=== PATIENT | female | born 1970 | race Caucasian/White ===

== ENCOUNTER → 2022-12-13 | Outpatient (CLI) | payer OTHER ==
--- NOTE | 2022-12-18 22:54 | HM ---
HOLTER MONITOR REPORT STUDY PERFORMED: A 24-hour Holter. INDICATION: Bradycardia. Underlying rhythm is sinus with an average heart rate of 81 beats per minute. Heart rate varied from 64 beats per minute to 114 beats per minute. There were no episodes of more than 2-second pauses. There were no episodes of atrial fibrillation. Occasional PACs and PVCs are noted. CONCLUSIONS: As above. MMODL / IJN: [id number] /
== END | disposition home or self-care (01) ==
LOC: RADECHMAIN 08:26
PROVIDERS: ATTEND Family Medicine
DX: R00.1 Bradycardia, unspecified (principal)
CPT/HCPCS: 93225; 93226

== ENCOUNTER → 2023-08-02 | Outpatient (CLI) | payer OTHER ==
[2023-08-03 02:27] LABS: BUN/Creat Ratio 18.88 Ratio (12.00-20.00); Blood Urea Nitrogen 15.1 mg/dL (9.0-27.0); Carbon Dioxide 26.6 mmol/L (21.6-31.8); Chloride 104 mmol/L (96-109); Glucose 88 mg/dL (70-110); Potassium 3.5 mmol/L (3.5-5.5); Sodium 141 mmol/L (135-145)
[2023-08-03 02:58] LABS: Basophils # (A) 0.05 X 10*3/uL (0.00-0.10); Basophils % (A) 0.5 %; Eosinophils # (A) 0.31 X 10*3/uL (0.04-0.35); HCT 40.5 % (37.2-46.3); HGB 13.6 g/dL (12.0-15.0); Lymphocytes # (A) 4.07 X 10*3/uL (0.90-5.00); Lymphocytes % (A) 39.4 %; MCH 32.4 pg (27.0-32.0); MCHC 33.6 g/dL (32.0-37.0); MCV 96.4 FL (80.0-97.0); Mean Platelet Volume 11.2 FL (9.5-12.2); Monocytes # (A) 0.87 X 10*3/uL (0.20-1.00); Monocytes % (A) 8.4 %; NRBC Per 100 WBC 0 X 10*3/uL (0.00-0.01); Neutrophils % (A) 48.3 %; Platelet Count 290 X 10*3/uL (140-440); RDW 12.2 % (11.5-14.5); WBC 10.34 X 10*3/uL (4.50-10.00)
== END | disposition home or self-care (01) ==
LOC: LABPAT 16:21
PROVIDERS: ATTEND Urology
DX: Z01.812 Encounter for preprocedural laboratory examination (principal); N20.0 Calculus of kidney
CPT/HCPCS: 80048; 85025

== ENCOUNTER 2023-08-09 05:36 | Day surgery (SDC) | payer OTHER ==
--- NOTE | 2023-08-02 18:34 | P.GSHP ---
History of Present Illness H&P Date: 08/02/23 Chief Complaint: Flank pain The patient is a 53-year-old white female with a history of kidney stones, for which she has undergone ESWL and ureteroscopy in the past. She now presents with intermittent bilateral flank pain. CT scan shows bilateral renal calculi measuring up to 9 mm in size. Specifically, she has a 9 mm left mid to upper pole renal calculus and a 7 mm left lower pole calculus; also a 1 cm right mid pole calculus and a 7 mm right lower pole calculus. She was offered the options of observation, ESWL, and ureteroscopy with laser lithotripsy. She has chosen to undergo the latter. She understands that this will be a staged procedure given the stone burden. - Gastrointestinal Gastrointestinal: Reports heartburn, Denies nausea, Denies vomiting - Genitourinary (Female) Genitourinary: Reports flank pain, Reports kidney stones, Reports mixed incontinence, Denies hematuria Past Medical History Past Medical History: COPD, Myocardial Infarction ([place]) Past Surgical History: Heart Catheterization With Stent, Hernia Repair Smoking Status: Current every day smoker, Heavy tobacco smoker Past Alcohol Use History: None Reported Past Drug Use History: Marijuana Medications and Allergies Home Medications Medication Instructions Recorded Confirmed Type Albuterol Inhaler [Ventolin Hfa 2 puff INHALATION RT-QID PRN 06/15/23 06/15/23 History Inhaler] Aspirin 81 mg PO DAILY 06/15/23 06/15/23 History Cephalexin [Keflex] 500 mg PO Q6HR 1 Days #12 cap 06/15/23 Rx Cholecalciferol [Vitamin D3 (25 50 mcg PO DAILY 06/15/23 06/15/23 History Mcg = 1000 Iu)] HYDROcodone/APAP 5-325MG [[place] 1 tab PO Q6HR PRN 3 Days #12 tab 06/15/23 Rx 5-325] Multivitamins, Thera [Multivitamin 1 tab PO DAILY 06/15/23 06/15/23 History (formulary)] Omeprazole 20 mg PO DAILY 06/15/23 06/15/23 History carvediloL [Coreg] 3.125 mg PO BID 06/15/23 06/15/23 History Allergies Allergy/AdvReac Type Severity Reaction Status Date / Time No Known Allergies Allergy Verified 06/15/23 22:53 Surgical - Exam - General well developed, well nourished, no distress - Neck no masses, trachea midline - Respiratory normal respiratory effort - Abdomen Abdomen: soft, non tender, no guarding, no rigid, no rebound - Psychiatric oriented to time, oriented to person, oriented to place, speech is normal, memory intact Results - Imaging CT scan - abdomen: report reviewed Assessment and Plan (1) Calculus of kidney Status: Acute Code(s): N20.0 - CALCULUS OF KIDNEY SNOMED Code(s): 02105129 Plan: Cystoscopy, bilateral retrograde pyelograms, bilateral ureteroscopy with Holmium laser lithotripsy and stone basketing, bilateral ureteral stent insertion. The procedure then reviewed in detail with the patient. She has been made aware of potential risks, which include anesthesia, bleeding, infection, ureteral injury, and inability to remove all calculi.
[2023-08-09] MEDS ORDERED: HYDROmorphone 0.5 MG/0.5 ML SYRINGE IVP PRN (06:14)
[2023-08-09] MEDS ORDERED: ONDANSETRON 4 MG/2 ML VIAL IVP ONE (06:14)
[2023-08-09] MEDS ORDERED: DEXAMETHASONE SOD PHOSPHATE 4 MG/ML 1 ML VIAL IV ONE (06:14)
[2023-08-09] MEDS: LACTATED RINGERS 1,000 ML IV SCH ×2 (06:35→13:07)
[2023-08-09] MEDS ORDERED: MIDAZOLAM 2 MG/2 ML VIAL ONE (07:03)
[2023-08-09] MEDS ORDERED: fentaNYL (PF) 50 MCG/ML 2 ML AMP ONE (07:03)
[2023-08-09] MEDS ORDERED: NEOSTIGMINE 1 MG/ML 10 ML VIAL ONE (07:03)
[2023-08-09] MEDS ORDERED: ROCURONIUM 10 MG/ML (5 ML VIAL) IV ONE (07:03)
[2023-08-09] MEDS ORDERED: GLYCOPYRROLATE 0.2 MG/ML 2 ML VIAL ONE (07:03)
[2023-08-09] MEDS ORDERED: HYDROmorphone (PF) 1 MG/ML ONE (07:03)
[2023-08-09] MEDS ORDERED: PROPOFOL 10 MG/ML 20 ML VIAL IV ONE (07:03)
[2023-08-09] MEDS ORDERED: SUCCINYLCHOLINE CHLORIDE 200 MG/10 ML VIAL IV ONE (07:03)
[2023-08-09] MEDS ORDERED: LIDOCAINE 1% INJ 10MG/ML (20 ML MDV) ONE (07:03)
[2023-08-09] MEDS ORDERED: IOPAMIDOL-370 100ML BTL MISCELLANE ONE (07:33)
--- NOTE | 2023-08-09 07:57 | XR ---
EXAMINATION TYPE: XR KUB DATE OF EXAM: 08/09/2023 HISTORY: Pain Comparison: None. Single KUB is submitted for interpretation. Findings: Right renal calculi: 2 right-sided renal calculi seen the largest measures 1.4 cm mid upper lobe. Right ureteral calculi: None Visualized. Left renal calculi: Left renal calculi approximately 2 in number the largest mid to upper pole measu ring 1.2 cm. Left ureteral calculi: Left ureteral calculus at the S2-3 level cannot be excluded measuring 8.1 mm. Correlate clinically. Pelvic calcifications: None Visualized. Bowel gas pattern is unremarkable. No free air. No mass effects. IMPRESSION: 1. As above
[2023-08-09 09:50] VITALS: TEMP 97.8
--- NOTE | 2023-08-09 09:58 | P.OP ---
Date of Procedure: 08/09/23 Preoperative Diagnosis: Bilateral renal calculi Postoperative Diagnosis: Same Procedure(s) Performed: Cystoscopy, bilateral retrograde pyelogram, bilateral ureteroscopy with Holmium laser lithotripsy and stone basketing, bilateral ureteral stent insertion Anesthesia: JOCELYN Surgeon: Jesse Trevino Estimated Blood Loss (ml): 10 IV fluids (ml): 700 Pathology: other (Calculus fragments, sent for chemical analysis) Condition: stable Disposition: PACU Indications for Procedure: The patient is a 53-year-old white female with a history of kidney stones, for which she has undergone ESWL and ureteroscopy in the past. She now presents with intermittent bilateral flank pain. CT scan shows bilateral renal calculi measuring up to 9 mm in size. Specifically, she has a 9 mm left mid to upper pole renal calculus and a 7 mm left lower pole calculus; also a 1 cm right mid pole calculus and a 7 mm right lower pole calculus. She was offered the options of observation, ESWL, and ureteroscopy with laser lithotripsy. She has chosen to undergo the latter. She understands that this will be a staged procedure given the stone burden. Operative Findings: Bilateral renal calculi, removed completely Description of Procedure: The patient was taken to the operating room and placed in the dorsolithotomy position, with legs supported in John stirrups. The external genitalia was prepped and draped sterilely. The 30 lens was used to introduce the 21-Mozambican Jones cystoscopic sheath through the urethra and into the bladder under direct vision. The bladder was examined in its entirety. Both ureteral orifices were normal anatomic location and configuration, and clear urine effluxed from both. No tumors or foreign bodies were seen. Using a 10-[place]ozambican cone-tipped catheter, bilateral retrograde pyelograms were performed. The ureters were normal in course and caliber. No filling defects were seen. There was no hydronephrosis. A 0.038 inch Glidewire was passed through the cystoscope. The left ureteral orifice was cannulated, and the Glidewire was advanced up to the renal pelvis. The cystoscope was removed, and an 11/13-Mozambican ureteral access catheter was passed over the wire, up to the proximal ureter. The Jones [employer]ers flexible ureteroscope was then passed through the ureteral access catheter sheath, up to the renal pelvis. Each calyx was examined. Calculi were identified within a mid pole calyx and a lower pole calyx. The 272 micron Holmium laser probe was passed through the ureteroscope, and lithotripsy was performed, initially treating the mid pole calyx. A dusting mode was utilized, until the calculus began to fragment, and all calculus fragments were removed using a 1.9-Mozambican 0 tip nitinol basket. Attention was then paid to the lower pole calculus, which was grasped with the basket and relocated into the renal pelvis, where lithotripsy was performed. Once again, dusting was performed, and any fragments were removed using the nitinol basket. Once there was nothing remaining in the kidney other than dust, the procedure was terminated. Pullout ureteroscopy showed no evidence of ureteral trauma. An identical procedure was performed on the right side. Once again, calculi were located within a mid pole calyx and a lower pole calyx. 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 The lower pole calculus was relocated into the renal pelvis where lithotripsy was performed. Upon completion of the procedure, only dust remained. Pullout ureteroscopy showed no evidence of ureteral trauma. The cystoscope was replaced into the bladder. A 22 cm, 6-Mozambican double-J ureteral stents were placed bilaterally in the standard fashion. Proper stent positioning was verified fluoroscopically and endoscopically. The bladder was emptied and the cystoscope removed. The patient tolerated the procedure well and was taken to the recovery room in stable condition. [employer] Report: Procedure Acuity: Elective Stone Size and Location: See indications for procedure Ureteral Dilation: No Ureteral Access Sheath Used: Yes Stone Sent for Analysis: Yes All Stones/Fragments Were Removed with a Basket: Yes Complications: No Preoperative Antibiotics Given: Yes Stent Placed: Yes If Stent Placed, Was String Left Attached: No If Stent Placed, When is it to be Removed: 1 week Discharge Medications: Toradol, oxybutynin chloride
--- NOTE | 2023-08-09 10:02 | FL ---
Fluoroscopy History: CYSTO Bilateral cysto with bilateral stent insertion. Betrus. 42 sec fluoro. 3.0350 DAP. LC
[2023-08-09] MEDS ORDERED: KETOROLAC 15 MG/ML 1 ML VIAL IVP ONE (10:48)
[2023-08-09 13:51] VITALS: BP 130/81; PULSE 52; RESP 14
== END 2023-08-09 14:36 | disposition home or self-care (01) ==
LOC: OR 05:36
PROVIDERS: ATTEND Urology
DX: N20.0 Calculus of kidney (principal); I25.2 Old myocardial infarction; J44.9 Chronic obstructive pulmonary disease, unspecified; F17.200 Nicotine dependence, unspecified, uncomplicated; F12.90 Cannabis use, unspecified, uncomplicated; Z87.442 Personal history of urinary calculi; Z79.82 Long term (current) use of aspirin; Z79.899 Other long term (current) drug therapy
CPT/HCPCS: 52356; 82365; 74018; C1758; C2625; C1769; J2250; J0330; J1100; J2710; J0690; J2405; J2001; J3010; J1170 ×2; J1885; J2704; Q9967

== ENCOUNTER 2023-11-03 18:29 | Emergency (ER) | payer OTHER ==
--- NOTE | 2023-11-03 18:51 | ED ---
General Adult HPI - General Source: patient, RN notes reviewed Mode of arrival: ambulatory Limitations: no limitations <Mali Denson - Last Filed: 11/03/23 18:50> - General Source: patient, RN notes reviewed, old records reviewed <Arturo Brady - Last Filed: 11/04/23 00:24> - General Chief complaint: Abdominal Pain Stated complaint: flank pain Time Seen by Provider: 11/03/23 18:50 - History of Present Illness Initial comments: Note: Patient is a 53-year-old female presented to the ER with chief complaint of right flank pain. She does have a history of kidney surgery with stent placement most recently in August 2023. She does have a history of UTIs. Denies any current urinary symptoms. She also reports the past couple days she has been experiencing left chest pressure. Denies any shortness of breath. (Mali Denson) Patient is a 53-year-old female who was originally seen as a quick note. Presents emergency department complaining of right flank pain. Has a history of prior ureteral stenting for kidney stones. Was concerned that may be going on. Also was complaining of nonspecific left chest tightness/pressure. Attributes it to stress but she does have a prior cardiac history. Last time she ex perienced the symptoms was earlier today. Currently is asymptomatic in terms of the chest discomfort but has mild flank discomfort. Presented for further evaluation at this time. (Arturo Brady) - Related Data Home Medications Medication Instructions Recorded Confirmed Albuterol Inhaler [Ventolin Hfa 2 puff INHALATION RT-QID PRN 06/15/23 08/06/23 Inhaler] Aspirin 81 mg PO DAILY 06/15/23 08/06/23 Cholecalciferol [Vitamin D3 (25 50 mcg PO DAILY 06/15/23 08/06/23 Mcg = 1000 Iu)] Multivitamins, Thera [Multivitamin 1 tab PO DAILY 06/15/23 08/06/23 (formulary)] Omeprazole 20 mg PO DAILY 06/15/23 08/06/23 carvediloL [Coreg] 3.125 mg PO BID 06/15/23 08/06/23 Atorvastatin [Lipitor] 80 mg PO DAILY 08/06/23 08/06/23 Ibuprofen 800 mg PO Q6H 08/06/23 08/06/23 Isosorbide Mononitrate ER [Imdur] 30 mg PO DAILY 08/06/23 08/06/23 Oxybutynin ER [Ditropan XL] 10 mg PO DAILY 08/06/23 08/06/23 Previous Rx's Medication Instructions Recorded Ketorolac [Toradol] 10 mg PO Q6HR PRN #10 tab 08/09/23 Allergies Allergy/AdvReac Type Severity Reaction Status Date / Time No Known Allergies Allergy Verified 08/09/23 06:08 Review of Systems ROS Other: All systems not noted in ROS Statement are negative. <Mali Denson - Last Filed: 11/03/23 18:50> ROS Other: All systems not noted in ROS Statement are negative. <Arturo Brady - Last Filed: 11/04/23 00:24> ROS Statement: Those systems with pertinent positive or pertinent negative responses have been documented in the HPI. Review of Systems: CONST: Denies fever EYES: Denies blurry vision ENT: Denies nasal congestion C/V: Denies Chest pain RESP: Denies shortness of breath GI: Endorses abdominal pain/flank pain : Denies dysuria SKIN: Denies rash. MSK: Denies joint pain. 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, kidney stones, porlapsed baldder, Last Myocardial Infarction Date:: 12/2021 History of Any Multi-Drug Resistant Organisms: None Reported Past Surgical History: Heart Catheterization With Stent Additional Past Surgical History / Comment(s): cysto-lithotripsy Past Anesthesia/Blood Transfusion Reactions: No Reported Reaction Date of Last Stent Placement:: 12/2021 Past Psychological History: No Psychological Hx Reported Smoking Status: Current every day smoker <Mali Denson - Last Filed: 11/03/23 18:50> General Exam Limitations: no limitations <Mali Denson - Last Filed: 11/03/23 18:50> <Arturo Brady - Last Filed: 11/04/23 00:24> - General Exam Comments Initial Comments: Visual Physical Exam Vital signs reviewed General: Well-appearing, nontoxic, no acute distress. Head: Normocephalic, atraumatic Eyes: PERRLA, EOMI ENT: Airway patent Chest: Nonlabored breathing Skin: No visual rash, normal skin tone Neuro: Alert and oriented 3 Musculoskeletal: No gross abnormalities (Mali Denson) General: Appears in no acute distress. HEAD: Normal with no signs of head trauma. EYES: PERRLA, EOMI, conjunctiva normal, no discharge. ENT: Hearing grossly intact, normal oropharynx. RESPIRATORY: Clear breath sounds bilaterally. No wheezes, rales, or rhonchi. C/V: Regular rate and rhythm. S1 and S2 auscultated, no edema, peripheral pulses 2+ and intact throughout ABD: Patient has point tenderness to palpation over the right flank. No guarding. Abdomen is otherwise nondistended, soft. No rebound tenderness. No peritoneal signs. EXT: Normal range of motion, no obvious deformity SKIN: No rashes or lesions observed on exposed skin. NEURO: Alert and oriented x 4. (Arturo Brady) Course Vital Signs 11/03/23 11/04/23 18:35 00:06 Temperature 98.2 F 98.1 F Pulse Rate 69 52 L Respiratory 16 Rate Blood Pressure 139/60 164/83 O2 Sat by Pulse 98 98 Oximetry Medical Decision Making <Mali Denson - Last Filed: 11/03/23 18:50> - Lab Data Result diagrams: 11/03/23 19:46 11/03/23 19:46 - EKG Data -: EKG Interpreted by Me <Arturo Brady - Last Filed: 11/04/23 00:24> - Medical Decision Making I performed the quick note portion of this chart. Electronically signed by Mali Denson PA-C (Mali Denson) Was pt. sent in by a medical professional or institution ([facility], [employer], urgent care, hospital, or halfway...) When possible be specific @ -No Did you speak to anyone other than the patient for history (EMS, parent, family, police, friend...)? What history was obtained from this source @ -No Did you review nursing and triage notes (agree or disagree)? Why? @ -I reviewed and agree with nursing and triage notes Were old charts reviewed (outside hosp., previous admission, EMS record, old EKG, old radiological studies, urgent care reports/EKG's, halfway records)? Report findings @ -Old charts reviewed Differential Diagnosis (chest pain, altered mental status, abdominal pain women, abdominal pain men, vaginal bleeding, weakness, fever, dyspnea, syncope, headache, dizziness, GI bleed, back pain, seizure, CVA, palpatations, mental health, musculoskeletal)? @ -Differential Abdominal Pain Women: Appendicitis, Cholecystitis, diverticulosis, ischemic bowel, pancreatitis, hep atitis, UTI, gastroenteritis, AAA, incarcerated hernia, bowel obstruction, constipation, inflammatory bowel, hepatitis, peptic ulcer disease, splenic infarction, perforated viscus, vulvitis, ovarian torsion, PID, kidney stone, placenta abruption, this is not meant to be an all-inclusive list EKG interpreted by me (3pts min.). @ -As above X-rays interpreted by me (1pt min.). @ -Chest x-ray reveals no obvious acute cardiopulmonary process. CT interpreted by me (1pt min.). @ -CT abdomen pelvis reveals no obvious acute abdominal process. Patient has bilateral nonobstructing nephrolithiasis. U/S interpreted by me (1pt. min.). @ -None done What testing was considered but not performed or refused? (CT, X-rays, U/S, labs)? Why? @ -None What meds were considered but not given or refused? Why? @ -None Did you discuss the management of the patient with other professionals (professionals i.e. , PA, [employer], lab, RT, psych nurse, social group worker, home service director, teacher, custodial officer, clinical case manager)? Give summary @ -No Was smoking cessation discussed for >3mins.? @ -No Was critical care preformed (if so, how long)? @ -No Were there social determinants of health that impacted care today? How? (H omelessness, low income, unemployed, alcoholism, drug addiction, transportation, low edu. Level, literacy, decrease access to med. care, snf, rehab)? @ -No Was there de-escalation of care discussed even if they declined (Discuss DNR or withdrawal of care, Hospice)? DNR status @ -No What co-morbidities impacted this encounter? (DM, HTN, Smoking, COPD, CAD, Cancer, CVA, ARF, Chemo, Hep., AIDS, mental health diagnosis, sleep apnea, morbid obesity)? @ -History of kidney stones Was patient admitted / discharged? Hospital course, mention meds given and route, prescriptions, significant lab abnormalities, going to OR and other pertinent info. @ -Based on the patient's presentation and physical exam, presents with primarily right flank pain as well as intermittent chest tightness for the last few days. Chest tightness currently not present. Last occurred earlier this morning. I evaluated patient late at night. Workup was done while patient was in the waiting room as a quick note. This includes imaging with CT abdomen pelvis that was unremarkable except for uncomplicated nephrolithiasis. Chest x- ray shows no obvious acute cardiopulmonary process. Labs remarkable for leukocytosis of 13 which could be reactive. Troponin undetectable. Urinalysis shows no obvious infection at this time. There are some white blood cells but no other acute findings. On reevaluation, patient is resting comfortably. I did discuss her workup with her. I did offer obtaining a second troponin as well as possible observation admission for her multiple days of chest tightness but states she is not worried about it she attributes it to stress. She has not had it for multiple hours. She does not want to have the second lab draw or be admitted. I believe this is reasonable at this time as she has been asymptomatic since arrival and last to have these nonspecific complaints earlier this morning. Strict return precautions discussed but she will be discharged home at this time. She was in agreement this plan. I instructed the patient to follow up with their PCP in the next 1-3 days. I explained that the patient should return to the emergency department if they experience any worsening symptoms. Strict return precautions were discussed with the patient. The patient expressed understanding of these instructions. I answered all questions that the patient had. The patient was discharged home in good condition with their prescriptions and follow up information. Undiagnosed new problem with uncertain prognosis? @ -No Drug Therapy requiring intensive monitoring for toxicity (Heparin, Nitro, Insulin, Cardizem)? @ -No Were any procedures done? @ -No Diagnosis/symptom? @ -Abdominal pain of unknown etiology, flank pain Acute, or Chronic, or Acute on Chronic? @ -Acute Uncomplicated (without systemic symptoms) or Complicated (systemic symptoms)? @ -Uncomplicated Side effects of treatment? @ -No Exacerbation, Progression, or Severe Exacerbation? @ -No Poses a threat to life or bodily function? How? (Chest pain, [place], [place], pneumonia, PE, COPD, DKA, ARF, appy, cholecystitis, CVA, Diverticulitis, Homicidal, Suicidal, threat to staff... and all critical care pts) @ -Unlikely (Arturo Brady) - Lab Data Lab Results 11/03/23 11/03/23 11/03/23 Range/Units 19:46 19:46 19:46 WBC 13.7 H (3.8-10.6) k/uL RBC 4.15 (3.80-5.40) m/uL Hgb 13.5 (11.4-16.0) gm/dL Hct 40.0 (34.0-46.0) % MCV 96.3 (80.0-100.0) fL MCH 32.5 (25.0-35.0) pg MCHC 33.7 (31.0-37.0) g/dL RDW 12.1 (11.5-15.5) % Plt Count 230 (150-450) k/uL MPV 8.9 Neutrophils % 63 % Lymphocytes % 29 % Monocytes % 4 % Eosinophils % 3 % Basophils % 1 % Neutrophils # 8.6 H (1.3-7.7) k/uL Lymphocytes # 3.9 (1.0-4.8) k/uL Monocytes # 0.6 (0-1.0) k/uL Eosinophils # 0.3 (0-0.7) k/uL Basophils # 0.1 (0-0.2) k/uL PT 10.5 (10.0-12.5) sec INR 0.9 (<1.2) APTT 20.7 L (22.0-30.0) sec Sodium (137-145) mmol/L Potassium (3.5-5.1) mmol/L Chloride (98-107) mmol/L Carbon Dioxide (22-30) mmol/L Anion Gap mmol/L BUN (7-17) mg/dL Creatinine (0.52-1.04) mg/dL Est GFR (CKD-EPI)AfAm (>60 ml/min/1.73 sqM) Est GFR (CKD-EPI)NonAf (>60 ml/min/1.73 sqM) Glucose (74-99) mg/dL Calcium (8.4-10.2) mg/dL Magnesium (1.6-2.3) mg/dL Total Bilirubin (0.2-1.3) mg/dL AST (14-36) U/L ALT (4-34) U/L Alkaline Phosphatase (38-126) U/L Troponin I (0.000-0.034) ng/mL Total Protein (6.3-8.2) g/dL Albumin (3.5-5.0) g/dL Urine Color Light Yellow Urine Appearance Clear (Clear) Urine pH 5.5 (5.0-8.0) Ur Specific [place] 1.016 (1.001-1.035) Urine Protein Negative (Negative) Urine Glucose (UA) Negative (Negative) Urine Ketones Negative (Negative) Urine Blood Negative (Negative) Urine Nitrite Negative (Negative) Urine Bilirubin Negative (Negative) Urine Urobilinogen <2.0 (<2.0) mg/dL Ur Leukocyte Esterase Trace H (Negative) Urine RBC 1 (0-5) /hpf Urine WBC 9 H (0-5) /hpf Ur Squamous Epith Cells 3 (0-4) /hpf Calcium Oxalate Crystal Occasional H (None) /hpf Urine Bacteria Rare H (None) /hpf Hyaline Casts 3 H (0-2) /lpf Urine Mucus Rare H (None) /hpf 11/03/23 11/03/23 Range/Units 19:46 19:46 WBC (3.8-10.6) k/uL RBC (3.80-5.40) m/uL Hgb (11.4-16.0) gm/dL Hct (34.0-46.0) % MCV (80.0-100.0) fL MCH (25.0-35.0) pg MCHC (31.0-37.0) g/dL RDW (11.5-15.5) % Plt Count (150-450) k/uL MPV Neutrophils % % Lymphocytes % % Monocytes % % Eosinophils % % Basophils % % Neutrophils # (1.3-7.7) k/uL Lymphocytes # (1.0-4.8) k/uL Monocytes # (0-1.0) k/uL Eosinophils # (0-0.7) k/uL Basophils # (0-0.2) k/uL PT (10.0-12.5) sec INR (<1.2) APTT (22.0-30.0) sec Sodium 139 (137-145) mmol/L Potassium 4.3 (3.5-5.1) mmol/L Chloride 110 H (98-107) mmol/L Carbon Dioxide 26 (22-30) mmol/L Anion Gap 3 mmol/L BUN 15 (7-17) mg/dL Creatinine 0.63 (0.52-1.04) mg/dL Est GFR (CKD-EPI)AfAm >90 (>60 ml/min/1.73 sqM) Est GFR (CKD-EPI)NonAf >90 (>60 ml/min/1.73 sqM) Glucose 113 H (74-99) mg/dL Calcium 8.9 (8.4-10.2) mg/dL Magnesium 2.0 (1.6-2.3) mg/dL Total Bilirubin 0.7 (0.2-1.3) mg/dL AST 50 H (14-36) U/L ALT 25 (4-34) U/L Alkaline Phosphatase 134 H (38-126) U/L Troponin I <0.012 (0.000-0.034) ng/mL Total Protein 6.8 (6.3-8.2) g/dL Albumin 3.9 (3.5-5.0) g/dL Urine Color Urine Appearance (Clear) Urine pH (5.0-8.0) Ur Specific [place] (1.001-1.035) Urine Protein (Negative) Urine Glucose (UA) (Negative) Urine Ketones (Negative) Urine Blood (Negative) Urine Nitrite (Negative) Urine Bilirubin (Negative) Urine Urobilinogen (<2.0) mg/dL Ur Leukocyte Esterase (Negative) Urine RBC (0-5) /hpf Urine WBC (0-5) /hpf Ur Squamous Epith Cells (0-4) /hpf Calcium Oxalate Crystal (None) /hpf Urine Bacteria (None) /hpf Hyaline Casts (0-2) /lpf Urine Mucus (None) /hpf - EKG Data EKG Comments: 12-lead Electrocardiogram Interpretation Note EKG was reviewed and interpreted by myself. 12-lead ECG performed at 1843 is interpreted by me as revealing normal sinus rhythm at a rate of 64 beats per minute. [place] is normal. [place] interval is 157 ms, QRS duration is 96 ms, QTc is 442 ms.. There were no ST or T wave abnormalities to suggest myocardial isc hemia or injury. R wave progression across the precordium was satisfactory. By my interpretation this EKG is non-diagnostic for acute ischemia. (Arturo Brady) Disposition <Mali Denson - Last Filed: 11/03/23 18:50> Is patient prescribed a controlled substance at d/c from ED?: No Time of Disposition: 00:01 <Arturo Brady - Last Filed: 11/04/23 00:24> Clinical Impression: Flank pain, Abdominal pain of unknown etiology Disposition: HOME SELF-CARE Condition: Good Instructions (If sedation given, give patient instructions): Abdominal Pain (ED) Referrals: Jesse Trevino MD [STAFF PHYSICIAN] - 1-2 days
[2023-11-03 18:55] VITALS: RESP 16
--- NOTE | 2023-11-03 19:46 | XR ---
EXAMINATION TYPE: XR chest 2V DATE OF EXAM: 11/03/2023 7:42 PM CLINICAL INDICATION:Female, 53 years old with history of Chest Pain; COMPARISON: Chest radiographs from 11/03/2023. TECHNIQUE: XR chest 2V Frontal and lateral views of the chest. FINDINGS: Lungs/Pleura: There is flattening of the diaphragm with increased lucency of the lungs. No evidence o f pneumothorax, pleural effusion or focal consolidation. Pulmonary vascularity: Unremarkable. Heart/mediastinum: Cardiomediastinal silhouette is unremarkable. Musculoskeletal: No acute osseous pathology. IMPRESSION: 1. No acute cardiopulmonary disease process. 2. COPD changes.
[2023-11-03 20:09] LABS: Basophils # (A) 0.1 k/uL (0-0.2); Basophils % (A) 1 %; Eosinophils # (A) 0.3 k/uL (0-0.7); Eosinophils % (A) 3 %; HGB 13.5 gm/dL (11.4-16.0); Lymphocytes # (A) 3.9 k/uL (1.0-4.8); Lymphocytes % (A) 29 %; MCH 32.5 pg (25.0-35.0); MCHC 33.7 g/dL (31.0-37.0); MCV 96.3 fL (80.0-100.0); Mean Platelet Volume 8.9; Monocytes # (A) 0.6 k/uL (0-1.0); Monocytes % (A) 4 %; Neutrophils # (A) 8.6 k/uL (1.3-7.7); Neutrophils % (A) 63 %; Platelet Count 230 k/uL (150-450); RBC 4.15 m/uL (3.80-5.40); RDW 12.1 % (11.5-15.5); WBC 13.7 k/uL (3.8-10.6)
[2023-11-03 20:22] LABS: ALT 25 U/L (4-34); African American GFR (CKD) >90 (>60 ml/min/1.73 sqM); Anion Gap 3 mmol/L; Blood Urea Nitrogen 15 mg/dL (7-17); Calcium 8.9 mg/dL (8.4-10.2); Carbon Dioxide 26 mmol/L (22-30); Chloride 110 mmol/L (98-107); Glucose 113 mg/dL (74-99); Non-African American GFR(CKD) >90 (>60 ml/min/1.73 sqM); Sodium 139 mmol/L (137-145)
[2023-11-03 20:26] LABS: AST 50 U/L (14-36); Albumin 3.9 g/dL (3.5-5.0); Alkaline Phosphatase 134 U/L (38-126); Potassium 4.3 mmol/L (3.5-5.1); Total Bilirubin 0.7 mg/dL (0.2-1.3); Total Protein 6.8 g/dL (6.3-8.2)
[2023-11-03 20:34] LABS: INR 0.9 (<1.2); Prothrombin Time 10.5 sec (10.0-12.5)
--- NOTE | 2023-11-03 20:54 | CT ---
EXAMINATION TYPE: CT abdomen pelvis wo con CT DLP: 362.1 mGycm, Automated exposure control for dose reduction was used. DATE OF EXAM: 11/03/2023 8:17 PM COMPARISON: 06/15/2023 CLINICAL INDICATION:Female, 53 years old with history of right flank pain hx stone; Rt side flank katie n. Hx of renal stone. TECHNIQUE: Axial CT abdomen pelvis wo con;Sagittal and coronal reformats were created on a separate workstation. Contrast used: mL of , (none if empty) Oral contrast used: without Oral Contrast (none if empty) FINDINGS: LOWER CHEST: Unremarkable ABDOMEN LIVER: Unremarkable GALLBLADDER AND BILE DUCTS: Unremarkable. PANCREAS: Unremarkable. SPLEEN: Unremarkable. ADRENAL GLANDS: Unremarkable. KIDNEYS AND URETERS: Bilateral nonobstructing renal calculi measuring up to 7 mm in the right and 5 m m on the left. No evidence of hydronephrosis or renal calculus. The ureters are unremarkable. PELVIS BLADDER: Unremarkable REPRODUCTIVE: Bilateral tubal ligation clips. ABDOMEN & PELVIS STOMACH AND BOWEL: No evidence of bowel obstruction. Appendix is normal. PERITONEUM/RETROPERITONEUM: No evidence of pneumoperitoneum or free fluid. VASCULATURE: No evidence of aortic aneurysm. MUSCULOSKELETAL: No acute osseous abnormalities. Moderate disc degeneration changes are present throu ghout the thoracolumbar spine. Moderate to severe bilateral L5-S1 neural foraminal stenosis secondary to osteophyte complex and LYMPH NODES: No gross evidence for lymphadenopathy. SOFT TISSUE/ABDOMINAL WALL: Unremarkable IMPRESSION: No evidence for obstructive uropathy. Bilateral nonobstructing renal calculi.
[2023-11-03 21:04] LABS: Appearance,Urine Clear (Clear); Bacteria,Urine Rare /hpf; Bilirubin,Urine Negative (Negative); Blood,Urine Negative (Negative); Calcium Oxalate Crystals,Urine Occasional /hpf; Color,Urine Light Yellow; Glucose,Urine (UA) Negative (Negative); Hyaline Casts,Urine 3 /lpf (0-2); Ketones,Urine Negative (Negative); Leukocyte Esterase,Urine Trace (Negative); Mucus,Urine Rare /hpf; Nitrite,Urine Negative (Negative); PH, Urine 5.5 (5.0-8.0); Protein,Urine Negative (Negative); RBC,Urine 1 /hpf (0-5); Specific Gravity,Urine 1.016 (1.001-1.035); Squamous Epithelial Cell,Urine 3 /hpf (0-4); Urobilinogen,Urine <2.0 mg/dL (<2.0); WBC,Urine 9 /hpf (0-5)
[2023-11-03 21:07] LABS: Partial Thromboplastin Time 20.7 sec (22.0-30.0)
[2023-11-04 00:53] VITALS: BP 164/83; PULSE 52; TEMP 98.1
== END 2023-11-04 00:12 | disposition home or self-care (01) ==
LOC: EC 18:29
DX: N20.0 Calculus of kidney (principal); J44.9 Chronic obstructive pulmonary disease, unspecified; K21.9 Gastro-esophageal reflux disease without esophagitis; E78.5 Hyperlipidemia, unspecified; F17.200 Nicotine dependence, unspecified, uncomplicated; I25.2 Old myocardial infarction; Z79.82 Long term (current) use of aspirin; Z79.899 Other long term (current) drug therapy
CPT/HCPCS: 36415; 71046; 74176; 80053; 81001; 83735; 84484; 85025; 85610; 85730; 93005; 99285

== ENCOUNTER → 2023-12-13 | Outpatient (CLI) | payer OTHER ==
[2023-12-14 02:57] LABS: Basophils # (A) 0.08 X 10*3/uL (0.00-0.10); Basophils % (A) 0.7 %; Eosinophils % (A) 2.7 %; HCT 45.3 % (37.2-46.3); HGB 14.7 g/dL (12.0-15.0); Lymphocytes # (A) 3.58 X 10*3/uL (0.90-5.00); Lymphocytes % (A) 32.5 %; MCH 32.5 pg (27.0-32.0); MCHC 32.5 g/dL (32.0-37.0); MCV 100.2 FL (80.0-97.0); Mean Platelet Volume 11.7 FL (9.5-12.2); Monocytes # (A) 0.77 X 10*3/uL (0.20-1.00); NRBC Per 100 WBC 0 X 10*3/uL (0.00-0.01); Neutrophils # (A) 6.25 X 10*3/uL (1.80-7.70); Neutrophils % (A) 56.8 %; Platelet Count 255 X 10*3/uL (140-440); RBC 4.52 X 10*6/uL (4.10-5.20); RDW 12.2 % (11.5-14.5); WBC 11.01 X 10*3/uL (4.50-10.00)
[2023-12-14 03:13] LABS: Anion Gap 14.6 mmol/L (4.00-12.00); Carbon Dioxide 23.4 mmol/L (21.6-31.8); Potassium 3.6 mmol/L (3.5-5.5)
== END | disposition home or self-care (01) ==
LOC: LABPAT 16:23
PROVIDERS: ATTEND Urology
DX: Z01.812 Encounter for preprocedural laboratory examination (principal); N20.0 Calculus of kidney
CPT/HCPCS: 80051; 85025

== ENCOUNTER → 2024-01-25 | Day surgery (SDC) | payer OTHER ==
[~2024-01-25] MED LIST: LIDOCAINE 1% INJ 10MG/ML (20 ML MDV) ONE; PROPOFOL 10 MG/ML 20 ML VIAL IV ONE
[2024-01-25] MEDS: LACTATED RINGERS 1,000 ML IV SCH (14:08)
[2024-01-25 14:58] VITALS: TEMP 98
--- NOTE | 2024-01-25 15:50 | P.PCN ---
Date of Procedure: 01/25/24 Procedure(s) Performed: BRIEF HISTORY: Patient is a 53-year-old, pleasant, white female scheduled for an upper endoscopy as well as part of follow-up of submucosal lesion in the body of the stomach that was found in March 2023. 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 IV sedation per anesthesia. PROCEDURE: After informed consent was obtained, the patient was brought into the endoscopy unit. IV sedation was administered by Anesthesia under continuous monitoring. Initially the Olympus GIF-140 video endoscope was inserted into the mouth. Esophagus intubated without any difficulty. It was gradually advanced into the stomach and duodenum and carefully examined. The bulb and the second part of the duodenum appeared normal. The scope at this time was withdrawn to the stomach, adequately insufflated with air, and upon careful examination, mucosa of the antrum, body, and the fundus appeared normal. In the cardia of the stomach there was a 3 cm submucosal smooth lesion identified which appears to be of the same size from the prior upper endoscopy 9 months ago. Biopsies were done from this area. The scope was then withdrawn into the esophagus. Small hiatal hernia noted the GE junction was located at 39 cm from the incisors. The esophagus appeared normal. There were no erosions or ulcerations seen and the patient tolerated the procedure well. IMPRESSION: 1. 3 cm small submucosal lesion in the cardia of the stomach with no significant change in size from prior upper endoscopy 9 months ago. 2. Small hiatal hernia. RECOMMENDATIONS: The findings of this examination were discussed with the patient as well as her family. She was advised to follow with the biopsy results. Follow-up in the office in 2 to 3 weeks. Recommended repeat upper endoscopy on a yearly basis to monitor the size of the lesion.
[2024-01-25 15:55] VITALS: RESP 16
[2024-01-25 16:45] VITALS: BP 141/87; PULSE 63
== END ==
LOC: ORWHC2ENDO 13:57
PROVIDERS: ATTEND Internal Medicine Gastroenterology
DX: K29.50 Unspecified chronic gastritis without bleeding (principal); K44.9 Diaphragmatic hernia without obstruction or gangrene; I25.10 Atherosclerotic heart disease of native coronary artery without angina pectoris; E78.5 Hyperlipidemia, unspecified; J44.9 Chronic obstructive pulmonary disease, unspecified; K21.9 Gastro-esophageal reflux disease without esophagitis; F12.90 Cannabis use, unspecified, uncomplicated; F17.200 Nicotine dependence, unspecified, uncomplicated; Z87.442 Personal history of urinary calculi; Z79.82 Long term (current) use of aspirin; Z79.899 Other long term (current) drug therapy
CPT/HCPCS: 88305; 43239; J2001; J2704

== ENCOUNTER → 2024-03-14 | Outpatient (CLI) | payer OTHER ==
[2024-03-14 18:23] LABS: Basophils # (A) 0.08 X 10*3/uL (0.00-0.10); Basophils % (A) 0.9 %; Eosinophils # (A) 0.32 X 10*3/uL (0.04-0.35); Eosinophils % (A) 3.5 %; HGB 14.4 g/dL (12.0-15.0); Lymphocytes # (A) 3.32 X 10*3/uL (0.90-5.00); Lymphocytes % (A) 36.4 %; MCH 32.4 pg (27.0-32.0); MCHC 33.5 g/dL (32.0-37.0); MCV 96.6 FL (80.0-97.0); Mean Platelet Volume 11.3 FL (9.5-12.2); Monocytes # (A) 0.61 X 10*3/uL (0.20-1.00); Monocytes % (A) 6.7 %; NRBC Per 100 WBC 0 X 10*3/uL (0.00-0.01); Neutrophils # (A) 4.77 X 10*3/uL (1.80-7.70); Neutrophils % (A) 52.2 %; Platelet Count 218 X 10*3/uL (140-440); RBC 4.45 X 10*6/uL (4.10-5.20); WBC 9.13 X 10*3/uL (4.50-10.00)
[2024-03-14 18:57] LABS: BUN/Creat Ratio 12.33 Ratio (12.00-20.00); Blood Urea Nitrogen 11.1 mg/dL (9.0-27.0); Calcium 9.3 mg/dL (8.7-10.3); Chloride 106 mmol/L (96-109); Glucose 119 mg/dL (70-110); Potassium 3.7 mmol/L (3.5-5.5); Sodium 144 mmol/L (135-145)
== END | disposition home or self-care (01) ==
LOC: LABPAT 12:20
PROVIDERS: ATTEND Urology
DX: Z01.812 Encounter for preprocedural laboratory examination (principal); N20.0 Calculus of kidney
CPT/HCPCS: 80048; 85025

== ENCOUNTER 2024-03-17 07:50 | Day surgery (SDC) | payer OTHER ==
--- NOTE | 2024-03-12 09:02 | P.GSHP ---
History of Present Illness H&P Date: 03/12/24 Chief Complaint: Renal calculi The patient is a 53-year-old white female with a history of urolithiasis. Her calculi are composed predominantly of calcium oxalate monohydrate. She has undergone removal of calculi via ureteroscopy and ESWL in the past. In August 2023, she underwent bilateral ureteroscopy with holmium laser lithotripsy and stone basketing. Recent CT scan shows bilateral renal calculi measuring up to 7 mm on the right, in addition to a 5 mm left lower pole renal calculus. She was offered the options of repeat ureteroscopy, observation, or extracorporal shockwave lithotripsy (ESWL). She has chosen to undergo the latter. - Constitutional Constitutional: Denies chills, Denies fever - Gastrointestinal Gastrointestinal: Denies nausea, Denies vomiting - Genitourinary (Female) Genitourinary: Reports kidney stones, Denies flank pain, Denies hematuria Past Medical History Past Medical History: COPD, GERD/Reflux, Hyperlipidemia, Myocardial Infarction ([place]), Renal Disease Additional Past Medical History / Comment(s): non cancerous tumor in stomach, kidney stones, porlapsed baldder, Last Myocardial Infarction Date:: 12/2021 History of Any Multi-Drug Resistant Organisms: None Reported Past Surgical History: Heart Catheterization With Stent Additional Past Surgical History / Comment(s): cysto-lithotripsy Past Anesthesia/Blood Transfusion Reactions: No Reported Reaction Date of Last Stent Placement:: 12/2021 Additional Drug Use History / Comment(s): refrain 24 hours prior to procedure Medications and Allergies Home Medications Medication Instructions Recorded Confirmed Type Albuterol Inhaler [Ventolin Hfa 2 puff INHALATION RT-QID PRN 06/15/23 01/25/24 History Inhaler] Aspirin 81 mg PO DAILY 06/15/23 01/25/24 History Cholecalciferol [Vitamin D3 (25 50 mcg PO DAILY 06/15/23 01/25/24 History Mcg = 1000 Iu)] Multivitamins, Thera [Multivitamin 1 tab PO DAILY 06/15/23 01/25/24 History (formulary)] Omeprazole 20 mg PO QAM 06/15/23 01/25/24 History carvediloL [Coreg] 3.125 mg PO BID 06/15/23 01/25/24 History Atorvastatin [Lipitor] 80 mg PO DAILY 12/14/23 01/25/24 History Cetirizine HCl [Zyrtec] 10 mg PO DAILY 12/14/23 01/25/24 History Fluticasone Propionate [Flonase 1 spray EA NOSTRIL DAILY 12/14/23 01/25/24 History Allergy Relief] Ibuprofen [Motrin] 800 mg PO Q8H PRN 12/14/23 01/25/24 History Allergies Allergy/AdvReac Type Severity Reaction Status Date / Time No Known Allergies Allergy Verified 01/25/24 14:10 Surgical - Exam - General well developed, well nourished, no distress - Respiratory normal respiratory effort - Abdomen Abdomen: soft, non tender, no guarding, no rigid, no rebound - Psychiatric oriented to time, oriented to person, oriented to place, speech is normal, memory intact Assessment and Plan (1) Calculus of kidney Status: Acute Code(s): N20.0 - CALCULUS OF KIDNEY SNOMED Code(s): 84460415 Plan: Right ESWL. The largest calculus measures approximately 5 mm in size and appears to be located within the renal pelvis adjacent to a midpole calyx. The procedure has been reviewed in detail with the patient. She is aware of potential risks, which include anesthesia, renal contusion, perinephric hematoma, injury to adjacent organs, treatment failure, incomplete fragmentation and Steinstrasse. She is aware of the possible need for a secondary procedure.
[2024-03-13 16:44] VITALS: BMI 24.4
[~2024-03-17 07:50] MED LIST changes: +LIDOCAINE 1% (10MG/ML) FOR IV START INTRADERMA PRN; -LIDOCAINE 1% INJ 10MG/ML (20 ML MDV) ONE; -PROPOFOL 10 MG/ML 20 ML VIAL IV ONE
--- NOTE | 2024-03-17 08:08 | XR ---
EXAMINATION TYPE: XR KUB DATE OF EXAM: 03/17/2024 COMPARISON: 08/09/2023 INDICATION: Kidney stones presurgical evaluation TECHNIQUE: Single view abdomen FINDINGS: There is a normal bowel gas pattern. Psoas margins are normal. No organomegaly is present. Larger renal stones are present on the left measuring 1.1 and 1.3 cm in size. The 1.3 cm calcificatio n is not identified on the second image and may be within fecal debris. Smaller calcifications are in ferior pole right kidney measuring 0.2, 0.3, and 0.4 cm in size. Some larger calcification may be at the upper pole right kidney. This could be within fecal debris. Left renal pelvic stone may be presen t measuring 0.8 cm. IMPRESSION: 1. Multiple bilateral renal stones, larger on the left.
[2024-03-17 08:29] VITALS: TEMP 97.2
[2024-03-17] MEDS: IV FLUID CONTINUATION 1,000 ML IV ONE ×2 (08:40→09:38)
[2024-03-17] MEDS: LACTATED RINGERS 1,000 ML IV SCH (08:40)
[2024-03-17] MEDS ORDERED: MIDAZOLAM 2 MG/2 ML VIAL ONE (09:39)
[2024-03-17] MEDS ORDERED: LIDOCAINE 1% INJ 10MG/ML (20 ML MDV) ONE (09:39)
[2024-03-17] MEDS ORDERED: KETAMINE HCL IN 0.9 % NACL 50 MG/5 ML SYRINGE ONE (09:39)
[2024-03-17] MEDS ORDERED: fentaNYL (PF) 50 MCG/ML 2 ML AMP ONE (09:39)
[2024-03-17] MEDS ORDERED: PROPOFOL 10 MG/ML 20 ML VIAL IV ONE (09:39)
--- NOTE | 2024-03-17 10:22 | P.OP ---
Date of Procedure: 03/17/24 Preoperative Diagnosis: Right renal calculi Postoperative Diagnosis: Same Procedure(s) Performed: Right extracorporeal shockwave lithotripsy (ESWL) Anesthesia: MAC Surgeon: Jesse Trevino Estimated Blood Loss (ml): 0 IV fluids (ml): 500 Pathology: none sent Condition: stable Disposition: PACU Indications for Procedure: The patient is a 53-year-old white female with a history of urolithiasis. Her calculi are composed predominantly of calcium oxalate monohydrate. She has undergone removal of calculi via ureteroscopy and ESWL in the past. In August 2023, she underwent bilateral ureteroscopy with holmium laser lithotripsy and stone basketing. Recent CT scan shows bilateral renal calculi measuring up to 7 mm on the right, in addition to a 5 mm left lower pole renal calculus. She was offered the options of repeat ureteroscopy, observation, or extracorporal shockwave lithotripsy (ESWL). She has chosen to undergo the latter. Operative Findings: No obvious fragmentation. Description of Procedure: The patient was taken to the operating room and placed on the Dornier Gliph Delta II lithotripter in the supine position. The calculi were seen on biplanar fluoroscopy. Once the patient was properly positioned and sedated, lithotripsy was performed. The energy level was gradually increased per protocol, to an energy level of 4. After 200 shocks were administered, a 2 minute pause was i nstituted per protocol. A total of 2500 shocks were given at a rate of 80 shocks per minute. Fluoroscopy was utilized at a minimum to ensure proper positioning and determine the treatment status. The appearance of the calculus failed to change, suggesting fragmentation had not occurred. The patient tolerated the procedure well was taken to the recovery room in stable condition. Instructions were given to strain the urine, and the patient will follow-up within one week.
[2024-03-17 10:42] VITALS: RESP 16
[2024-03-17 11:29] VITALS: BP 134/79; PULSE 80
== END 2024-03-17 11:59 | disposition home or self-care (01) ==
LOC: ORWHC2ENDO 07:50
PROVIDERS: ATTEND Urology
DX: N20.0 Calculus of kidney (principal); E78.5 Hyperlipidemia, unspecified; I25.2 Old myocardial infarction; J44.9 Chronic obstructive pulmonary disease, unspecified; K21.9 Gastro-esophageal reflux disease without esophagitis; I10 Essential (primary) hypertension; I25.10 Atherosclerotic heart disease of native coronary artery without angina pectoris; N81.10 Cystocele, unspecified; F12.90 Cannabis use, unspecified, uncomplicated; Z95.5 Presence of coronary angioplasty implant and graft; Z79.82 Long term (current) use of aspirin; Z79.51 Long term (current) use of inhaled steroids; Z79.899 Other long term (current) drug therapy
CPT/HCPCS: 74018; 50590; J2250; J2001; J3010; J2704

== ENCOUNTER 2024-04-14 03:45 | Emergency (ER) | payer OTHER ==
[2024-04-14] MEDS ORDERED: HYDROmorphone 1 MG/ML 1 ML SYRINGE ONE (05:00)
[2024-04-14] MEDS ORDERED: ONDANSETRON 4 MG/2 ML VIAL ONE (05:00)
[2024-04-14] MEDS ORDERED: HYDROmorphone 0.5 MG/0.5 ML SYRINGE ONE (06:46)
[2024-04-14] MEDS ORDERED: ACET/COD 300 MG/30 MG STARTER PACK 6 TAB BTL PO ONE (09:11)
[2024-04-14] MEDS ORDERED: ONDANSETRON 4 MG ODT STARTER PACK 2 TAB BTL ONE (09:11)
[2024-04-14] MEDS ORDERED: KETOROLAC 15 MG/ML 1 ML VIAL ONE (09:11)
--- NOTE | 2024-05-20 11:38 | XR ---
Patient: Frida Kyle C Ordering Physician: Unknown, Unknown ID: [id number] Phone, Pager: Phone: N/A Pager: N/A : 1970 Age/Gender: 53Y, F Primary Location: N/A Procedure: CHEST 2V Study Date: 5:38:00 AM EXAMINATION TYPE: XR chest 2V DATE OF EXAM: 04/27/2024 1:20 PM CLINICAL INDICATION: Shortness of breath and/or pain COMPARISON: Chest radiographs from 11/03/2023 TECHNIQUE: XR chest 2V Frontal view of the chest. FINDINGS: Lungs/Pleura: There is no evidence of pleural effusion, focal consolidation, or pneumothorax. Pulmonary vascularity: Unremarkable. Heart/mediastinum: Cardiomediastinal silhouette is unremarkable. Musculoskeletal: No acute osseous pathology. Other findings: None IMPRESSION: No acute cardiopulmonary disease/process.
== END 2024-04-14 09:24 | disposition home or self-care (01) ==
LOC: EC 03:45
DX: N20.0 Calculus of kidney (principal)
CPT/HCPCS: 71046; 74150; 93005; 96374; 96375; 99284

== ENCOUNTER 2024-04-15 20:08 | Emergency (ER) | payer OTHER ==
[2024-04-15] MEDS ORDERED: ONDANSETRON 4 MG/2 ML VIAL ONE (20:53)
[2024-04-15] MEDS ORDERED: HYDROmorphone 1 MG/ML 1 ML SYRINGE ONE (20:53)
[2024-04-15] MEDS ORDERED: SODIUM CHLORIDE 0.9% 1,000 ML BAG ONE (21:15)
[2024-04-16] MEDS ORDERED: ACETAMINOPHEN TAB 500 MG TAB ONE (00:26)
== END 2024-04-16 00:13 | disposition home or self-care (01) ==
LOC: EC 20:08
DX: R52 Pain, unspecified (principal)
CPT/HCPCS: 96361; 96374; 96375; 99284

== ENCOUNTER 2024-05-01 08:27 | Day surgery (SDC) | payer OTHER ==
[~2024-05-01 08:27] MED LIST changes: +HYDROmorphone 0.5 MG/0.5 ML SYRINGE IVP PRN; -LIDOCAINE 1% (10MG/ML) FOR IV START INTRADERMA PRN
[2024-05-01 08:48] VITALS: RESP 16
[2024-05-01] MEDS: IV FLUID CONTINUATION 1,000 ML IV ONE (08:49)
[2024-05-01] MEDS: LACTATED RINGERS 1,000 ML IV SCH (08:53)
[2024-05-01] MEDS: DEXAMETHASONE SOD PHOSPHATE 4 MG/ML 1 ML VIAL IV ONE (08:59)
[2024-05-01] MEDS: ONDANSETRON 4 MG/2 ML VIAL IVP ONE (08:59)
[2024-05-01 09:05] LABS: Glucose,Whole Blood 125 mg/dL (70-110)
[2024-05-01] MEDS ORDERED: MIDAZOLAM 2 MG/2 ML VIAL ONE (09:10)
[2024-05-01] MEDS ORDERED: PHENYLEPHRINE 10 MG/ML VIAL ONE (09:10)
[2024-05-01] MEDS ORDERED: WATER FOR INJECTION, STERILE 10 ML VIAL IV ONE (09:10)
[2024-05-01] MEDS ORDERED: ROCURONIUM 10 MG/ML (5 ML VIAL) IV ONE (09:10)
[2024-05-01] MEDS ORDERED: LIDOCAINE 1% INJ 10MG/ML (20 ML MDV) ONE (09:10)
[2024-05-01] MEDS ORDERED: NEOSTIGMINE 1 MG/ML 10 ML VIAL ONE (09:10)
[2024-05-01] MEDS ORDERED: ePHEDrine 50 MG/ML 1 ML VIAL ONE (09:10)
[2024-05-01] MEDS ORDERED: PROPOFOL 10 MG/ML 20 ML VIAL IV ONE (09:10)
[2024-05-01] MEDS ORDERED: GLYCOPYRROLATE 0.2 MG/ML 2 ML VIAL ONE (09:10)
[2024-05-01] MEDS ORDERED: SUCCINYLCHOLINE CHLORIDE 200 MG/10 ML VIAL IV ONE (09:10)
[2024-05-01] MEDS: IOPAMIDOL-370 100ML BTL MISCELLANE ONE (10:51)
[2024-05-01 11:19] VITALS: TEMP 97.6
[2024-05-01 12:32] VITALS: BP 127/82; PULSE 57
--- NOTE | 2024-05-01 12:52 | FL ---
EXAMINATION TYPE: FL urography retrograde DATE OF EXAM: 05/01/2024 FLUOROSCOPY Fluoroscopy time of 12.2 seconds was used during urology procedure for ureteral calcification, bilate ral retrograde cystogram. 7 image/s document/s the procedure. DAP 0.37220 Gycm2.
--- NOTE | 2024-05-01 13:38 | P.OP ---
Date of Procedure: 05/01/24 Preoperative Diagnosis: Bilateral renal calculi Postoperative Diagnosis: Bilateral renal calculi, left hydronephrosis secondary to left distal ureteral calculus Procedure(s) Performed: Cystoscopy, bilateral retrograde pyelograms, left ureteroscopy with Holmium laser lithotripsy, left ureteral stent insertion Anesthesia: JOCELYN Surgeon: Jesse Trevino Estimated Blood Loss (ml): 5 IV fluids (ml): 700 Pathology: none sent Condition: stable Disposition: PACU Indications for Procedure: The patient is a 54-year-old white female with a history of urolithiasis. Her calculi are composed predominantly of calcium oxalate monohydrate. She has undergone removal of calculi via ureteroscopy and ESWL in the past. In August 2023, she underwent bilateral ureteroscopy with holmium laser lithotripsy and stone basketing. Recent CT scan shows bilateral renal calculi measuring up to 7 mm on the right, in addition to a 5 mm left lower pole renal calculus. She underwent right ESWL on March 17, 2024 but it appears not to have been successful. Following that, she has experienced left flank pain. She has ultimately elected to undergo ureteroscopic removal of bilateral renal calculi. Operative Findings: 1 cm impacted left distal ureteral calculus. The calculus was fragmented and the urine drained from the system was grossly purulent. Description of Procedure: The patient was taken to the operating room and placed in the dorsolithotomy position, with legs supported in John stirrups. The external genitalia was prepped and draped sterilely. The 30 lens was used to introduce the 21-E[place]an Jones cystoscopic sheath through the urethra and into the bladder under direct vision. The bladder was examined in its entirety. Both ureteral orifices were normal anatomic location and configuration. Blood was seen at the left ureteral orifice. No tumors or foreign bodies were seen. Using a 10 E[place]an cone-tip catheter, bilateral retrograde pyelograms were performed. The right retrograde pyelogram showed the right ureter to be normal in course and caliber. Fullness of the intrarenal collecting system was noted. On the left side, a large calculus was seen within the left distal ureter, on fluoroscopy immediately adjacent to the tubal ligation clip. The Jones semirigid ureteroscope was advanced into the bladder, and the left ureteral orifice was cannulated. Clots were present within the ureter, and these were removed using a 0 tip 1.9 [place]an nitinol basket. The ureteroscope was then advanced up to the calculus. The 272 micron Holmium laser probe was passed through the ureteroscope, and lithotripsy was performed. This was done with caution, as the calculus was impacted and edema surrounded the calculus. A cavitation method was utilized whereby the central portion of the calculus was fragmented, leaving the periphery of the calculus intact to protect the ureter. Portions of the stone broke away and passed distally into the bladder. Ultimately, once the most proximal portion of the calculus was fragmented, cloudy urine passed distally from the obstructed ureter. The decision was made at this time to terminate the procedure. A 0.035 inch Glidewire was passed through the ureteroscope and advanced up to the left renal pelvis, where it coiled. The ureteroscope was removed, and the Glidewire was backloaded into the cystoscope, which was passed into the bladder. A 22 cm, 6 [place]an double-J ureteral stent was placed over the wire. Proper stent positioning was verified fluoroscopically and endoscopically. Purulent urine drained through the stent. With the beak of the cystoscope immediately adjacent to the distal curl of the stent, urine was collected and sent for culture and sensitivity. The bladder was emptied and the cystoscope removed. The patient tolerated the procedure well and was taken to the recovery room in stable condition. MUSIC ROCKS Report: Procedure Acuity: Semi-Urgent Stone Size and Location: 1 cm, left distal ureter Ureteral Dilation: No Ureteral Access Sheath Used: No Stone Sent for Analysis: No All Stones/Fragments Were Removed with a Basket: No Complications: No Preoperative Antibiotics Given: Yes Stent Placed: Yes If Stent Placed, Was String Left Attached: No If Stent Placed, When is it to be Removed: 3 weeks Discharge Medications: Levaquin
== END 2024-05-01 12:58 | disposition home or self-care (01) ==
LOC: OR 08:27
PROVIDERS: ATTEND Urology
DX: N13.2 Hydronephrosis with renal and ureteral calculous obstruction (principal)

== ENCOUNTER 2024-05-15 06:05 | Day surgery (SDC) | payer OTHER ==
[2024-05-09 17:45] VITALS: BMI 23.4
--- NOTE | 2024-05-14 21:39 | P.GSHP ---
History of Present Illness H&P Date: 05/14/24 Chief Complaint: Flank Pain The patient is a 54-year-old white female with a history of urolithiasis. Her calculi are composed predominantly of calcium oxalate monohydrate. She has undergone removal of calculi via ureteroscopy and ESWL in the past. In August 2023, she underwent bilateral ureteroscopy with holmium laser lithotripsy and stone basketing. Recent CT scan shows bilateral renal calculi measuring up to 7 mm on the right, in addition to a 5 mm left lower pole renal calculus. She underwent right ESWL on March 17, 2024 but it appears not to have been successful. Following that, she experienced left flank pain. She was found to have a 1 cm left distal ureteral calculus, for which she underwent left ureteroscopy with laser lithotripsy. She now comes for ureteroscopic removal of bilateral renal calculi. - Constitutional Constitutional: Reports chills, Reports fever - Gastrointestinal Gastrointestinal: Reports nausea, Reports vomiting - Genitourinary (Male) Genitourinary: Reports flank pain, Reports kidney stones Past Medical History Past Medical History: Chest Pain / Angina, COPD, GERD/Reflux, Hyperlipidemia, Hypertension, Myocardial Infarction ([place]) Additional Past Medical History / Comment(s): Non cancerous tumor in stomach, kidney stones, prolapsed bladder, PAD - pain in legs, blockages, hiatal hernia. Last Myocardial Infarction Date:: 12/2021 History of Any Multi-Drug Resistant Organisms: None Reported Past Surgical History: Heart Catheterization With Stent Additional Past Surgical History / Comment(s): Cysto-lithotripsy X5, EGD, colonoscopy, left ureteral stent insertion. Past Anesthesia/Blood Transfusion Reactions: Previous Problems w/ Anesthesia Additional Past Anesthesia/Blood Transfusion Reaction / Comment(s): FEELS LIKE TOO MUCH ANESTHESIA WAS GIVEN WITH SECOND LAST PROCEDURE-TOOK 5 HOURS TO COME OUT. Date of Last Stent Placement:: 12/2021 Smoking Status: Current every day smoker - Past Family History Mother Family Medical History: Cancer Father Additional Family Medical History / Comment(s): Kidney failure. Medications and Allergies Home Medications Medication Instructions Recorded Confirmed Type Albuterol Inhaler [Ventolin Hfa 2 puff INHALATION RT-QID PRN 06/15/23 05/09/24 History Inhaler] Aspirin 81 mg PO DAILY 06/15/23 05/09/24 History Cholecalciferol [Vitamin D3 (25 50 mcg PO DAILY 06/15/23 05/09/24 History Mcg = 1000 Iu)] Multivitamins, Thera [Multivitamin 1 tab PO DAILY 06/15/23 05/09/24 History (formulary)] Omeprazole 20 mg PO QAM 06/15/23 05/09/24 History carvediloL [Coreg] 3.125 mg PO BID 06/15/23 05/09/24 History Atorvastatin [Lipitor] 80 mg PO DAILY 12/14/23 05/09/24 History Cetirizine HCl [Zyrtec] 10 mg PO DAILY 12/14/23 05/09/24 History Fluticasone Propionate [Flonase 1 spray EA NOSTRIL DAILY 12/14/23 05/09/24 History Allergy Relief] Ibuprofen [Motrin] 800 mg PO Q8H PRN 12/14/23 05/09/24 History Levofloxacin [Levaquin] 500 mg PO DAILY 04/29/24 05/09/24 History Allergies Allergy/AdvReac Type Severity Reaction Status Date / Time No Known Allergies Allergy Verified 05/09/24 17:34 Surgical - Exam - General well developed, well nourished, no distress - Respiratory normal respiratory effort - Abdomen Abdomen: soft, non tender, no guarding, no rigid, no rebound - Genitourinary normal external genitalia - Psychiatric oriented to time, oriented to person, oriented to place, speech is normal, memory intact Assessment and Plan (1) Calculus of kidney Status: Acute Code(s): N20.0 - CALCULUS OF KIDNEY SNOMED Code(s): 06119629 Plan: Cystoscopy, bilateral ureteroscopy with Holmium laser lithotripsy and stone basketing, bilateral ureteral stent insertion. The procedure has been reviewed in detail with the patient. She is aware of potential risks, which include anesthesia, bleeding, infection, inability to remove all calculi, and ureteral injury. Following the procedure, it has been recommended to her that she undergo a formal metabolic evaluation to determine the cause of her recurrent urolithiasis.
[~2024-05-15 06:05] MED LIST changes: -HYDROmorphone 0.5 MG/0.5 ML SYRINGE IVP PRN; +LIDOCAINE 1% (10MG/ML) FOR IV START INTRADERMA PRN; +SCOPOLAMINE 1 MG/72 HR PATCH TRANSDERM ONE; +droPERidol 5 MG/2 ML VIAL IVP ONE
--- NOTE | 2024-05-15 06:28 | XR ---
EXAMINATION TYPE: XR KUB DATE OF EXAM: 05/15/2024 6:19 AM CLINICAL HISTORY: Kidney stones TECHNIQUE: Two Upright KUB images of the abdomen are obtained. COMPARISON: Abdominal x-ray March 17, 2024. FINDINGS: New double-J left ureter stent. Slight left lateral positioning of the distal left ureter s tent noted. Tubal ligation clips in the pelvis redemonstrated. There is 8 mm calculus lower pole leve l of the left kidney at L3 level. There are 2-3 smaller right renal calculi redemonstrated near 3 mm in size. Overall nonobstructive bowel gas pattern. Osseous structures are intact. IMPRESSION: As above.
[2024-05-15] MEDS ORDERED: HYDROmorphone 0.5 MG/0.5 ML SYRINGE IVP PRN (07:00)
[2024-05-15] MEDS: IV FLUID CONTINUATION 1,000 ML IV ONE ×2 (07:05→08:24)
[2024-05-15] MEDS: LACTATED RINGERS 1,000 ML IV SCH (07:10)
[2024-05-15] MEDS: IPRATROPIUM-ALBUTEROL 3 ML NEB INHALATION STA (07:12)
[2024-05-15] MEDS: ONDANSETRON 4 MG/2 ML VIAL IVP ONE (07:18)
[2024-05-15] MEDS: DEXAMETHASONE SOD PHOSPHATE 4 MG/ML 1 ML VIAL IV ONE (07:18)
[2024-05-15] MEDS ORDERED: fentaNYL (PF) 50 MCG/ML 2 ML AMP ONE (07:27)
[2024-05-15] MEDS ORDERED: KETOROLAC 15 MG/ML 1 ML VIAL ONE (07:27)
[2024-05-15] MEDS ORDERED: PROPOFOL 10 MG/ML 20 ML VIAL IV ONE (07:27)
[2024-05-15] MEDS ORDERED: MIDAZOLAM 2 MG/2 ML VIAL ONE (07:27)
[2024-05-15] MEDS ORDERED: ePHEDrine 50 MG/ML 1 ML VIAL ONE (07:27)
[2024-05-15] MEDS ORDERED: LIDOCAINE 1% INJ 10MG/ML (20 ML MDV) ONE (07:27)
--- NOTE | 2024-05-15 09:07 | FL ---
Fluoroscopy History: RENAL CALCULI 30 SEC FL . DAP DOSE B/L stone removal and stent placement
[2024-05-15 09:23] VITALS: TEMP 97.4
[2024-05-15 09:39] VITALS: RESP 16
[2024-05-15 10:41] VITALS: BP 151/83; PULSE 46
--- NOTE | 2024-05-15 14:47 | P.OP ---
Date of Procedure: 05/15/24 Preoperative Diagnosis: Bilateral renal calculi Postoperative Diagnosis: Same Procedure(s) Performed: Cystoscopy, bilateral ureteroscopy with Holmium laser lithotripsy, left ureteral stent change, right ureteral stent insertion Anesthesia: JOCELYN Surgeon: Jesse Trevino Estimated Blood Loss (ml): 5 IV fluids (ml): 1,000 Pathology: none sent Condition: stable Disposition: PACU Indications for Procedure: The patient is a 54-year-old white female with a history of urolithiasis. Her calculi are composed predominantly of calcium oxalate monohydrate. She has undergone removal of calculi via ureteroscopy and ESWL in the past. In August 2023, she underwent bilateral ureteroscopy with holmium laser lithotripsy and stone basketing. Recent CT scan shows bilateral renal calculi measuring up to 7 mm on the right, in addition to a 5 mm left lower pole renal calculus. She underwent right ESWL on March 17, 2024 but it appears not to have been successful. Following that, she experienced left flank pain. She was found to have a 1 cm left distal ureteral calculus, for which she underwent left ureteroscopy with laser lithotripsy. She now comes for ureteroscopic removal of bilateral renal calculi. Operative Findings: 8 mm left lower pole renal calculus, dusted completely. Several small right mid pole renal calculi, dusted completely. Narrowing of the left distal ureter at the level of the iliac vessels. Description of Procedure: The patient was taken to the operating room and placed in the dorsolithotomy position, with legs supported in John stirrups. The external genitalia was prepped and draped sterilely. The 30 lens was used to introduce the 21-Maldivian Jones cystoscopic sheath through the urethra and into the bladder under direct vision. The bladder was examined in its entirety. No abnormalities were seen. Grasping forceps were used to grasp the distal end of the left ureteral stent, which was removed along with the cystoscope. The [employer] flexible ureteroscope was passed into the bladder. The left ureteral orifice was cannulated, and the ureteroscope was slowly advanced under direct vision. Narrowing was seen at the level of the iliac vessels, where a ureteral calculus was recently impacted. A 0.038 inch Glidewire was passed through the ureteroscope and up to the left renal pelvis. The ureteroscope was removed, and an 11 Maldivian obturator was passed over the wire to dilate the area of ureteral narrowing. The obturator was then removed, and the ureteroscope was passed over the wire and up to the left renal pelvis. Each calyx was examined. The only calculus seen was an 8 mm calculus within a lower pole calyx. A 1.9 Maldivian nitinol basket was used to grasp the calculus and reposition it into an upper pole calyx. The 272 micron Holmium laser probe was passed through the ureteroscope, and lithotripsy was performed utilizing a dusting mode. This was continued until there were no residual calculus fragments exceeding the size of the laser fiber tip, and none seen on fluoroscopy. The Glidewire was passed through the ureteroscope, which was withdrawn. Pullout ureteroscopy showed no evidence of ureteral trauma. The Glidewire was backloaded into the cystoscope, which was passed into the bladder. A 22 cm, 6 Maldivian double-J ureteral stent was placed over the wire. Proper stent positioning was verified fluoroscopically and endoscopically. The Glidewire was passed through the cystoscope. The right ureteral orifice was cannulated, and the Glidewire was advanced up to the right renal pelvis. An 11/13 Maldivian ureteral access catheter was passed over the wire, up to the right mid ureter. The ureteroscope was then advanced through the ureteral access catheter sheath and up to the right renal pelvis under direct vision. Each calyx was examined. Several calculi measuring up to 4 to 5 mm were located within a midpole calyx. Lithotripsy was performed, fragmenting these calculi completely. Once again, there were no residual calculus fragments exceeding the size of the laser fiber tip, and none seen on fluoroscopy. The other calyces were inspected, and no other calculi were seen. The Glidewire was passed through the ureteroscope, which was withdrawn. Pullout ureteroscopy showed no evidence of ureteral trauma. The Glidewire was backloaded into the cystoscope, which was passed into the bladder. A 22 cm, 6 Maldivian double-J ureteral stent was placed over the wire. Proper stent positioning was verified fluoroscopically and endoscopically. The bladder was emptied and the cystoscope removed. The patient tolerated the procedure well and was taken to the recovery room in stable condition. [facility] Report: Procedure Acuity: Elective Stone Size and Location: 8 mm, left lower pole Ureteral Dilation: Serial Dilation Ureteral Access Sheath Used: Yes Stone Sent for Analysis: No All Stones/Fragments Were Removed with a Basket: No Complications: No Preoperative Antibiotics Given: Yes Stent Placed: Yes If Stent Placed, Was String Left Attached: No If Stent Placed, When is it to be Removed: 3 weeks Discharge Medications: None
== END 2024-05-15 10:38 | disposition home or self-care (01) ==
LOC: OR 06:05
PROVIDERS: ATTEND Urology
DX: N20.2 Calculus of kidney with calculus of ureter (principal); J44.9 Chronic obstructive pulmonary disease, unspecified; K21.9 Gastro-esophageal reflux disease without esophagitis; E78.5 Hyperlipidemia, unspecified; I10 Essential (primary) hypertension; I25.10 Atherosclerotic heart disease of native coronary artery without angina pectoris; I25.2 Old myocardial infarction; I73.9 Peripheral vascular disease, unspecified; F17.210 Nicotine dependence, cigarettes, uncomplicated; Z87.442 Personal history of urinary calculi; Z80.9 Family history of malignant neoplasm, unspecified; Z79.82 Long term (current) use of aspirin; Z79.899 Other long term (current) drug therapy; Z79.02 Long term (current) use of antithrombotics/antiplatelets; Z79.1 Long term (current) use of non-steroidal anti-inflammatories (NSAID); Z79.2 Long term (current) use of antibiotics
CPT/HCPCS: 74018; 52356; C1769; C2625; J2250; J1100; J0690; J2405; J2001; J3010; J1885; J2704

== ENCOUNTER → 2024-09-05 | Outpatient (CLI) | payer OTHER ==
--- NOTE | 2024-09-05 15:31 | XR ---
EXAMINATION TYPE: XR KUB DATE OF EXAM: 09/05/2024 1:57 PM COMPARISON: r CLINICAL INDICATION: Female, 54 years old with history of N20.0 CALCULUS OF KIDNEY, TECHNIQUE: XR KUB view(s) obtained. FINDINGS: There is a normal bowel gas pattern. Psoas margins are normal. No organomegaly is present. There is a 0.8 cm calcification at the inferior pole right kidney. Bilateral surgical clips within th e pelvis. Previous left renal stone is not identified IMPRESSION: 1. 0.8 cm right renal stone inferior pole right kidney [facility], , 09/05/2024 3:28 PM
--- NOTE | 2024-09-05 21:27 | US ---
EXAMINATION TYPE: US kidneys/renal and bladder DATE OF EXAM: 09/05/2024 COMPARISON: XR KUB today. CT April 14, 2024 CLINICAL INDICATION: Female, 54 years old with history of N20.0 KIDNEY STONES; Hx stones; hx stent pl acement TECHNIQUE: Grayscale imaging of the bilateral kidneys and urinary bladder: FINDINGS: EXAM MEASUREMENTS: Right Kidney: 10.6 x 3.3 x 3.9 cm Left Kidney: 9.7 x 4.8 x 4.8 cm Right Kidney: Inferior pole stone noted measuring 0.4cm Left Kidney: No hydronephrosis or masses seen Bladder: Not fully distended; anechoic Bilateral Jets seen: Only right jet seen There is no evidence for hydronephrosis at this point in time. Approximate 4 mm calculus lower pole r ight kidney is noted. No masses are identified. The urinary bladder is anechoic. IMPRESSION: Nonobstructing small right renal calculus. No hydronephrosis seen bilaterally. [facility], , 09/05/2024 9:25 PM
== END | disposition home or self-care (01) ==
LOC: RADUSWWP 13:17
PROVIDERS: ATTEND Urology
DX: N20.0 Calculus of kidney (principal); Z87.442 Personal history of urinary calculi
CPT/HCPCS: 74018; 76770

== ENCOUNTER → 2024-10-29 | Outpatient (CLI) | payer OTHER ==
[2024-10-29 15:27] LABS: ALT 33 U/L (8-44); AST 36 U/L (13-35); Chol/HDL Ratio 3.12 Ratio; LDL Cholesterol,Calculated 94.3 mg/dL (0.0-131.0); VLDL Calculation 17.78 mg/dL (5.00-40.00)
== END | disposition home or self-care (01) ==
LOC: LABWHC1 08:06
PROVIDERS: ATTEND Internal Medicine Cardiovascular Disease
DX: E78.2 Mixed hyperlipidemia (principal)
CPT/HCPCS: 36415; 80061; 84450; 84460